=== PATIENT | female | born 1945 | race Caucasian/White ===

== ENCOUNTER 2022-08-11 13:55 | Observation (INO) ==
[2022-08-11 14:59] LABS: Hematocrit (blood only) 26.8 % (34.1-44.9); Hemoglobin 8.4 g/dl (12.0-16.0); Mean Corpuscular Hemoglobin 30.1 pg (25.0-34.0); Mean Corpuscular Hgb Conc 31.3 g/dL (32.0-36.0); Mean Corpuscular Volume 96.1 fL (80.0-100.0); Mean Platelet Volume 9.6 fL (9.4-12.3); Platelet Count 279 K/uL (130-400); RDW Coefficient of Variation 16.9 % (11.5-14.5); RDW Standard Deviation 57.7 fL (36.4-46.3); Red Blood Count 2.79 M/uL (3.93-5.22); White Blood Count 5.98 K/ul (4.8-10.8)
--- NOTE | 2022-08-11 15:18 | Emergency Department Note ---
Impression & Plan GIB (gastrointestinal bleeding), COVID-19, Anticoagulant long-term use, History of atrial fibrillation, Acute blood loss anemia ED Provider Note NAME: FAY BATISTA AGE: 77 SEX: F : 1945 ARRIVES VIA: Walk-In INFORMANT: Patient, ED PROVIDER(S): Chucho Barboza MD Chief Complaint: GI bleeding HPI: Patient presents due to concern for possible GI bleeding. The patient reportedly has had some dark stools over the last several weeks but only brought to the attention of her sons within the last week. They did order Hemoccult cards but did not have the dye. They did notice that she was having dark stools . No bright red blood per rectum. Patient is on Eliquis for known history of TAVR and A. fib. Patient denies any current dizziness or lightheadedness and no syncope. The patient has no abdominal pain. Patient has had no nausea or vomiting. She denies any chest pains or shortness of breath. Patient does not currently use any alcohol or tobacco. No NSAIDs. ROS: See HPI for pertinent positives and negatives. A total of 10 systems were reviewed and otherwise negative. Past medical history: See below Surgical history: See below Social history: See below Physical Exam: GENERAL: NAD, wearing a mask, non-toxic. EYE EXAM: Normal conjunctiva. PERRL, no anisocoria and EOM's grossly intact w/o pain. NECK: Supple, no nuchal rigidity, no adenopathy, non-tender. No signs of meningismus. FROM of the neck with good chin to chest and neck extension. No stridor. LUNGS: Clear to auscultation. Normal chest wall mechanics. HEART: NSR, no MRG. ABDOMEN: Abdomen soft, non-tender, normo-active bowel sounds, no masses, no rebound or guarding. BACK: No CVA TTP. SKIN: No rashes and no bruising. UPPER EXTREMITIES: Upper extremities are grossly normal. LOWER EXTREMITIES: Grossly normal, no edema. NEURO EXAM: A&O x3, cranial nerves II-XII grossly intact, normal speech, moves all 4 extremities. Differential diagnoses: Diverticulosis, AVM, coagulopathy, colitis, inflammatory bowel disease, malignancy, Senia-Lobo tear, esophagitis, peptic ulcer disease, variceal bleed, gastritis, epistaxis, fissure, hemorrhoids, as well as other pathologies. Course: Patient was seen and evaluated the bedside. Full history physical exam was performed. Cardiac monitoring: An order was placed for continuous cardiac monitoring. The monitor shows a rate of 69 with sinus rhythm. MDM: Patient was seen due to concern for GI bleeding. The patient did have blood work completed and did have some done yesterday in the outpatient setting. Patient was given some IV fluids. Hemoccult positive. The patient does have a drop in her hemoglobin to 8.4 and had been as high as 13 last May. Patient's white count is normal with normal platelet count. The patient's kidney function is unremarkable. Patient is COVID-positive. I did speak briefly with Dr. Lugo and after discussion does not think the patient requires Kcentra at this time. PPI bolus and drip ordered. The patient not complain of any infectious symptoms. I did speak the on-call hospitalist Dr. Hendrickson and the patient was admitted to the medicine service. Past Med/Surg History Medical History Anemia Carotid artery stenosis L ICA>70% 03/2020 Congestion of nasal sinus Cough GI bleeding Hyperlipidemia Hypertension Paroxysmal A-fib Anticoagulation, Amiodarone Surgical History History of appendectomy History of heart valve replacement TAVR 01/08/2019 History of hip replacement Family History Mother Breast cancer Hypertension Father Hypertension Myocardial infarction Denies family history of Colon cancer Ovarian cancer Prostate cancer Social History Smoking Status: Former smoker Tobacco Type: Cigarettes Age Started Using Tobacco: 16; Age Quit Using Tobacco: 73; packs per day: 1; Second Hand Exposure: No; Hx Alcohol Use: No Hx Substance Use: No Preferred Language: Dutch Communication Ability: Effective Visual Impairment: No Limitations Hearing Ability: Normal marital status: Current Living Situation: Family Current Living Situation Comment: lives with sons Ines current occupational status: retired 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 Feels Safe at Home: Yes Childhood Exposure to Second-Hand Smoke: No Diet Comment: no specific diet Dental Care, Regularly: No Physical Activity Frequency: Does not Exercise Seatbelt Use: always Sunscreen Use: No Do you think of yourself as: straight/heterosexual Allergies Allergies Allergy/AdvReac Type Severity Reaction Status Date / Time No Known Allergies Allergy Verified 08/11/22 16:18 Home Meds Home Medications Medication Instructions Recorded Confirmed ferrous sulfate 325 mg (65 mg 325 mg PO BID 05/27/20 08/11/22 iron) tablet vit C 250 mg-vit E 90 mg-zinc 40 1 tab PO BID 07/25/21 08/11/22 mg-copper 1 [id number]-[id number] capsule (PreserVision AREDS-2) calcium carbonate 500 mg calcium 500 mg PO BID 08/11/22 08/11/22 (1,250 mg) tablet carvedilol 6.25 mg tablet 6.25 mg PO BID 08/11/22 08/11/22 rosuvastatin 10 mg tablet 10 mg PO DAILY 08/11/22 08/11/22 Previous Rx's Medication Instructions Recorded multivitamin 1 tab PO DAILY #30 tabs 04/17/19 Walker w/ seat #1 ea 01/21/21 potassium chloride 10 mEq 10 meq PO DAILY 90 days #90 tabs 08/30/21 tablet,extended release apixaban 5 mg tablet 5 mg PO BID #180 tabs 10/18/21 furosemide 20 mg tablet 20 mg PO DAILY #90 tabs 12/19/21 lisinopril 20 mg tablet 20 mg PO DAILY #90 tabs 12/19/21 pantoprazole 40 mg tablet,delayed 40 mg PO BID #180 tabs 02/13/22 release levothyroxine 50 mcg tablet 50 mcg PO DAILY #90 tabs 07/26/22 Results & Data (ED) Vital Signs Vital Signs - 24 hr 08/11/22 14:09 08/11/22 15:55 08/11/22 15:55 Temperature 36.5 C Temperature Source Temporal Artery Scan Pulse Rate 82 Pulse Rate [Apical] 60 Pulse Rhythm [Apical] Regular Pulse Strength [Apical] Normal Respiratory Rate 18 18 Respiratory Effort / Characteristics Non-Labored Respiratory Depth Normal Normal Respiratory Pattern Regular Blood Pressure 105/52 L Blood Pressure [Right Arm] 117/47 L Blood Pressure Mean 69 Blood Pressure Mean [Right Arm] 70 Blood Pressure Position Sitting Blood Pressure Position [Right Arm] Lying Pulse Oximetry 96 Oxygen Delivery Method Room Air Room Air Sepsis Recent Fever Within 48 Hours No Sepsis New/Unexplained Change in Mental Status No Sepsis Action Taken by Nursing No Action Required 08/11/22 17:00 08/11/22 18:59 Temperature Temperature Source Pulse Rate Pulse Rate [Apical] 59 L 66 Pulse Rhythm [Apical] Regular Pulse Strength [Apical] Normal Respiratory Rate 18 18 Respiratory Effort / Characteristics Non-Labored Non-Labored Spontaneous Respiratory Depth Normal Normal Respiratory Pattern Regular Regular Blood Pressure Blood Pressure [Right Arm] 119/62 131/59 L Blood Pressure Mean Blood Pressure Mean [Right Arm] 81 83 Blood Pressure Position Blood Pressure Position [Right Arm] Lying Sitting Pulse Oximetry 97 96 Oxygen Delivery Method Room Air Room Air Sepsis Recent Fever Within 48 Hours Sepsis New/Unexplained Change in Mental Status Sepsis Action Taken by Half-Way Medications Current Medication List: was personally reviewed by me Laboratory Data Attestation: I reviewed the patient's lab results. Result diagrams: 08/11/22 14:45 08/11/22 14:45 Lab Results 08/11/22 08/11/22 08/11/22 Range/Units 14:45 14:45 14:45 WBC 5.98 (4.8-10.8) K/ul RBC 2.79 L (3.93-5.22) M/uL Hgb 8.4 L (12.0-16.0) g/dl Hct 26.8 L (34.1-44.9) % MCV 96.1 (80.0-100.0) fL MCH 30.1 (25.0-34.0) pg MCHC 31.3 L (32.0-36.0) g/dL RDW Std Deviation 57.7 H (36.4-46.3) fL RDW Coeff of Tracy 16.9 H (11.5-14.5) % Plt Count 279 (130-400) K/uL MPV 9.6 (9.4-12.3) fL PT 12.6 H (9.0-12.0) Seconds INR 1.2 H (0.9-1.1) APTT 26.6 (21.0-31.0) Seconds PTT Ratio 1.0 Sodium 140 (136-145) mmol/L Potassium 4.1 (3.5-5.1) mmol/L Chloride 104 (98-107) mmol/L Carbon Dioxide 31 (21-32) mmol/L Anion Gap 5 (3-11) BUN 18 (6-23) mg/dl Creatinine 1.02 (0.6-1.2) mg/dl Est Cr Clr Drug Dosing Not Reportable Est GFR ( Amer) 60.6 ml/min Est GFR (Non-Af Amer) 52.3 ml/min BUN/Creatinine Ratio 17.6 (10-20) Glucose 102 H (70-99(Fasting)) mg/dl Calcium 8.8 (8.5-10.1) mg/dl Total Bilirubin 0.4 (0.2-1.0) mg/dl AST 19 (13-39) U/L ALT 12 (7-52) U/L Alkaline Phosphatase 58 (34-104) U/L Total Protein 5.9 L (6.0-8.3) gm/dl Albumin 3.5 (3.4-5.0) gm/dl Globulin 2.4 L (2.5-4.0) gm/dl Albumin/Globulin Ratio 1.5 (0.9-2) POC Stool Occult Blood (Negative) SARS-CoV-2, RNA, NAAT (NEGATIVE) Blood Type Antibody Screen 08/11/22 08/11/22 08/11/22 Range/Units 15:55 15:59 17:33 WBC (4.8-10.8) K/ul RBC (3.93-5.22) M/uL Hgb (12.0-16.0) g/dl Hct (34.1-44.9) % MCV (80.0-100.0) fL MCH (25.0-34.0) pg MCHC (32.0-36.0) g/dL RDW Std Deviation (36.4-46.3) fL RDW Coeff of Tracy (11.5-14.5) % Plt Count (130-400) K/uL MPV (9.4-12.3) fL PT (9.0-12.0) Seconds INR (0.9-1.1) APTT (21.0-31.0) Seconds PTT Ratio Sodium (136-145) mmol/L Potassium (3.5-5.1) mmol/L Chloride (98-107) mmol/L Carbon Dioxide (21-32) mmol/L Anion Gap (3-11) BUN (6-23) mg/dl Creatinine (0.6-1.2) mg/dl Est Cr Clr Drug Dosing Est GFR ( Amer) ml/min Est GFR (Non-Af Amer) ml/min BUN/Creatinine Ratio (10-20) Glucose (70-99(Fasting)) mg/dl Calcium (8.5-10.1) mg/dl Total Bilirubin (0.2-1.0) mg/dl AST (13-39) U/L ALT (7-52) U/L Alkaline Phosphatase (34-104) U/L Total Protein (6.0-8.3) gm/dl Albumin (3.4-5.0) gm/dl Globulin (2.5-4.0) gm/dl Albumin/Globulin Ratio (0.9-2) POC Stool Occult Blood Positive A (Negative) SARS-CoV-2, RNA, NAAT POSITIVE A* (NEGATIVE) Blood Type O Positive Antibody Screen NEGATIVE Administered Medications Pantoprazole Sodium 40 mg/ (Dextrose) 100 mls @ 20 mls/hr IV Q5H VENECIA Stop: 09/10/22 15:44 Last Admin: 08/11/22 16:32 Dose: 8 mg/hr, 20 mls/hr Documented By: DOMINGA Discontinued Medications Pantoprazole Sodium (Protonix Bolus/Drip) 0 mls @ 1 mls/hr IV ONE STA Stop: 08/11/22 15:27 Last Admin: 08/11/22 16:16 Dose: Not Given Documented By: DOMINGA Pantoprazole Sodium 80 mg/ (Dextrose) 120 mls @ 400 mls/hr IV NOW ONE Stop: 08/11/22 15:43 Last Infusion: 08/11/22 16:31 Dose: 0 mls/hr Documented By: Admin: 08/11/22 16:15 Dose: 400 mls/hr Documented By: DOMINGA Sodium Chloride (Nss 1000ml) 500 mls @ 999 mls/hr IV .Q31M ONE Stop: 08/11/22 16:03 Last Infusion: 08/11/22 16:20 Dose: 0 mls/hr Documented By: Admin: 08/11/22 15:54 Dose: 999 mls/hr Documented By: DOMINGA Discharge Plan Visit Data Chief Complaint: GI Bleed Stated Complaint: GI BLEEDING ED Provider: Chucho Barboza Discharge Problem: GIB (gastrointestinal bleeding), COVID-19, Anticoagulant long-term use, History of atrial fibrillation, Acute blood loss anemia Forms Stand Alone Forms: My [facility] Prescriptions Prescriptions: No Action potassium chloride 10 mEq tablet extended release 10 meq PO DAILY 90 Days Qty: 90 3RF apixaban 5 mg tablet 5 mg PO BID Qty: 180 3RF furosemide 20 mg tablet 20 mg PO DAILY Qty: 90 3RF lisinopril 20 mg tablet 20 mg PO DAILY Qty: 90 3RF pantoprazole 40 mg tablet,delayed release (DR/EC) 40 mg PO BID Qty: 180 3RF multivitamin tablet 1 tab PO DAILY Qty: 30 0RF levothyroxine 50 mcg tablet 50 mcg PO DAILY Qty: 90 1RF ferrous sulfate 325 mg (65 mg iron) tablet 325 mg PO BID (DME) Walker w/ seat See Rx Instructions .Route .MEDSUPPLY Qty: 1 0RF Rx Instructions: As directed PreserVision AREDS-2 250-90-40-1 mg capsule 1 tab PO BID calcium carbonate [Calcium 500] 500 mg calcium (1,250 mg) Tablet 500 mg PO BID carvedilol 6.25 mg tablet 6.25 mg PO BID Rx Instructions: TAKE 1 TABLET BY MOUTH TWICE A DAY rosuvastatin 10 mg tablet 10 mg PO DAILY Rx Instructions: TAKE 1 TABLET BY MOUTH EVERY DAY Referrals Referrals: Jesu Tripathi DO [Primary Care Provider] -
[2022-08-11 15:26] LABS: INR 1.2 (0.9-1.1); Partial Thromboplastin Time 26.6 Seconds (21.0-31.0); Prothrombin Time 12.6 Seconds (9.0-12.0)
[2022-08-11] MEDS ORDERED: PANTOPRAZOLE BOLUS/DRIP 1 EACH IV STA (15:26)
[2022-08-11] MEDS ORDERED: PANTOprazole 80 MG in DEXTROSE 5% 100 ML IV ONE (15:26)
[2022-08-11] MEDS ORDERED: SODIUM CHLORIDE 0.9% 1000ML 500 ML IV ONE (15:33)
[2022-08-11 15:34] LABS: Alanine Aminotransferase 12 U/L (7-52); Albumin Globulin Ratio 1.5 (0.9-2); Albumin Level 3.5 gm/dl (3.4-5.0); Alkaline Phosphatase 58 U/L (34-104); Anion Gap 5 (3-11); Aspartate Aminotransferase 19 U/L (13-39); BUN Creatinine Ratio 17.6 (10-20); Bilirubin,Total 0.4 mg/dl (0.2-1.0); Blood Urea Nitrogen 18 mg/dl (6-23); Calcium 8.8 mg/dl (8.5-10.1); Carbon Dioxide 31 mmol/L (21-32); Chloride 104 mmol/L (98-107); Est GFR (African American) 60.6 ml/min; Est GFR (Non-African American) 52.3 ml/min; Globulin 2.4 gm/dl (2.5-4.0); Glucose 102 mg/dl (70-99(Fasting)); Potassium 4.1 mmol/L (3.5-5.1); Sodium 140 mmol/L (136-145); Total Protein 5.9 gm/dl (6.0-8.3)
--- NOTE | 2022-08-11 15:53 | History & Physical Report ---
Date of Service August 11, 2022 Assessment & Plan (1) UGIB (upper gastrointestinal bleed): Plan: 77-year-old female with a history of Eliquis use and no NSAID/aspirin/alcohol use and with 3 prior ulcers cauterized in [place] 2019 who presents with weakness, pallor, and melena with acute anemia suspect 2/2 upper GI bleed. GI bleed Dark stools/melena for several weeks Epigastric tenderness to palpation on exam. Patient with a history of 3X gastric ulcers that were cauterized in [place] in 2019. Does not use aspirin/NSAIDs or alcohol Outpatient hemoglobin 8.7, on ER check 8.4 - Was discussed wtih Dr. Lugo by ER, no Kcentra recommended. Hold Eliquis PPI drip started, continue GI consulted N.p.o. -H&H every 6 hours Type and cross on file No evidence of acute myocardial ischemia, transfusion threshold 7.0 Blood consent signed Diastolic CHF Echo 06/2021: LVEF 60-65%, grade 1 diastolic dysfunction, well-seated bioprosthetic valve - Antiplatelets due to GI bleeds, DOAC as noted Hold lisinopril due to relative hypotension Statin as noted Hold Lasix with relative hypotension Carvedilol held for admitting hypotension, resume to prevent beta-rubin withdrawal if blood pressure tolerable Gentle maintenance fluids while n.p.o., discontinue if Paroxysmal A. fib DOAC held as noted Carvedilol as noted Carotid stenosis Left ICA 70% 2020 No acute stroke pathology, antiplatelet/anticoagulation management as above COPD - Only on albuterol PRN at home, rarely - Denies hx of wheezing Hypertension Hold lisinopril/carvedilol in setting of bleed/hypotension and Hyperlipidemia continue rosuvastatin Aortic valve stenosis s/p bioprosthetic TAVR 01/08/2019 DOAC held as above PAD S/p right iliofemoral endarterectomy/repair 12/2018 with chronic right SFA occlusion Not on antiplatelets due to GI bleeds, DOAC held as noted DVT prophylaxis: SCDs, pharmacal prophylaxis held in the setting of bleed Diet: N.p.o., IVF Disposition: Medical telemetry for GI bleed CODE STATUS: Pillo Olivier [phone] surrogate DM son. Full Code. (2) Atrial fibrillation: (3) Anemia: (4) COPD (chronic obstructive pulmonary disease): (5) Pulmonary edema: (6) GERD (gastroesophageal reflux disease): (7) Hyperlipidemia: (8) Hypothyroidism: History of Present Illness Primary Care Provider: Jesu TripathiDO Fagan is a 77-year-old female with a past medical history of A. fib on apixaban, AVR, COPD, GERD, hyperlipidemia, CAD, hypothyroidism who presents to the emergency department for evaluation for GI bleed. Was seen 08/10/2022 with a hemoglobin of 8.7 from prior 13.5. On reevaluation in ER 08/11/2022 hemoglobin has had an interval decrease to 8.4. MCV 96. Sodium, potassium are normal Creatinine is with normal baseline, on admission creatinine is 1.02. BUN is not elevated, 18 on admission. No transaminitis Seen with son at bedside Had a home stool test from PCP Pale, week in the last 7 days Was supposed to have an appt today at 3pm but PCP recommended to come to the ER based on bloodwork 08/10 Stool 'dark like charcoal' for 10 days. No bright red blood. NO vomiting. NO abdominal pain. NO lightheadedness or dizziness. No syncope/presyncope. + generalized weakness yesterday, denies at time of bedside NO history of PA History of AVR in [place] Denies swelling/edema Denies NSAID/aspirin use. EGDCOlonscopy: [facility] in [place] 2019, was found to have a 3x gastric ulcer at the time which required cauterization. Medical History: Reviewed Medications: Reviewed. Eliquis (last dose this AM ~9-10am), carvedilol, lisinopril. Synthroid 50, PPI BID took this morning Surgical History: Reviewed Allergies: Reviewed. NKDA. Social History: No tobacco use. No alcohol use. Code Status:Full Allergies Allergy/AdvReac Type Severity Reaction Status Date / Time No Known Allergies Allergy Verified 08/11/22 16:18 Home Medications Medication Instructions Recorded Confirmed Type multivitamin 1 tab PO DAILY #30 tabs 04/17/19 08/04/22 Rx ferrous sulfate 325 mg (65 mg 325 mg PO BID 05/27/20 08/04/22 History iron) tablet Walker w/ seat #1 ea 01/21/21 08/04/22 Rx calcium carbonate 500 mg calcium 500 mg PO BID 07/25/21 08/04/22 History (1,250 mg) tablet (Calcium 500) vit C 250 mg-vit E 90 mg-zinc 40 1 tab PO BID 07/25/21 08/04/22 History mg-copper 1 [id number] capsule (PreserVision AREDS-2) potassium chloride 10 mEq 10 meq PO DAILY 90 days #90 tabs 08/30/21 08/04/22 Rx tablet,extended release apixaban 5 mg tablet 5 mg PO BID #180 tabs 10/18/21 08/04/22 Rx furosemide 20 mg tablet 20 mg PO DAILY #90 tabs 12/19/21 08/04/22 Rx lisinopril 20 mg tablet 20 mg PO DAILY #90 tabs 12/19/21 08/04/22 Rx pantoprazole 40 mg tablet,delayed 40 mg PO BID #180 tabs 02/13/22 08/04/22 Rx release rosuvastatin 10 mg tablet See Rx Instructions .Route 04/10/22 08/04/22 Rx .COMPLEX #90 tabs carvedilol 6.25 mg tablet See Rx Instructions .Route 06/12/22 08/04/22 Rx .COMPLEX #180 tabs levothyroxine 50 mcg tablet 50 mcg PO DAILY #90 tabs 07/26/22 08/04/22 Rx calcium carbonate 500 mg calcium 500 mg PO BID 08/11/22 08/11/22 History (1,250 mg) tablet Past Med/Surg History Medical History Anemia Carotid artery stenosis L ICA>70% 03/2020 Congestion of nasal sinus Cough GI bleeding Hyperlipidemia Hypertension Paroxysmal A-fib Anticoagulation, Amiodarone Surgical History History of appendectomy History of heart valve replacement TAVR 01/08/2019 History of hip replacement Family History Mother Breast cancer Hypertension Father Hypertension Myocardial infarction Denies family history of Colon cancer Ovarian cancer Prostate cancer Social History Smoking Status: Former smoker Tobacco Type: Cigarettes Age Started Using Tobacco: 16; Age Quit Using Tobacco: 73; packs per day: 1; Second Hand Exposure: No; Hx Alcohol Use: No Hx Substance Use: No Preferred Language: Finnish Communication Ability: Effective Visual Impairment: No Limitations Hearing Ability: Normal marital status: Current Living Situation: Family Current Living Situation Comment: lives with sons Ines current occupational status: retired 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 NAD. Cooperative. Somewhat poor historian, history collected with assistance of son at bedside. Mild pallor HEENT: Atraumatic, normocephalic. EoM intact. hearing intact. Pulm: CTAB A&P. -wheezes, -rales, -rhonchi. Symmetrical chest rise. No increased work of breathing. No respiratory distress. Cardiac: RRR, sm. Radial pulses intact and symmetrical. Abdominal: +epigastric tenderness without rebound nondistended, soft. BS present. Ext: warm, dry. No edema. Results & Data Results & Data ([facility]) Vital Signs (Past 12 Hours) Vital Signs Temp Pulse Resp BP 08/11/22 14:09 36.5 C 82 18 105/52 L PG Care Time/CCT Total # of Minutes Spent Total Time Spent with Patient: Total time spent is greater than 50% in coordination of care (as documented) at patient's floor/unit and/or counseling patient: Coding Level of Care Code 14330 Initial Inpt Care Lvl 3 Diagnoses UGIB (upper gastrointestinal bleed) K92.2 Atrial fibrillation I48.91 Anemia D64.9 COPD (chronic obstructive pulmonary disease) J44.9 Pulmonary edema J81.1 GERD (gastroesophageal reflux disease) K21.9 Hyperlipidemia E78.5 Hypothyroidism E03.9
[2022-08-11] MEDS: PANTOprazole 40 MG in DEXTROSE 5% 100 ML IV SCH ×2 (16:32→23:30)
[2022-08-11] MEDS ORDERED: POLYETHYLENE (MIRALAX) 17 GM PACK PO PRN (21:47)
[2022-08-11 22:24] LABS: Hemoglobin 8.3 g/dl (12.0-16.0)
[2022-08-11] MEDS: SODIUM CHLORIDE 0.9% 1000ML 1,000 ML IV SCH (23:59)
[2022-08-12] MEDS: PANTOprazole 40 MG in DEXTROSE 5% 100 ML IV SCH ×5 (02:14→22:44)
[2022-08-12 05:00] LABS: Basophils # (auto) 0.04 K/uL (0-0.2); Basophils % (auto) 0.8 %; Eosinophils % (auto) 3.9 %; Hemoglobin 7.5 g/dl (12.0-16.0); Immature Granulocytes # (auto) 0.01 K/uL (0.00-0.02); Immature Granulocytes % (auto) 0.2 %; Lymphocytes # (auto) 1.34 K/uL (1.2-3.4); Lymphocytes % (auto) 25.8 %; Mean Corpuscular Hemoglobin 29.8 pg (25.0-34.0); Mean Corpuscular Hgb Conc 31.3 g/dL (32.0-36.0); Mean Corpuscular Volume 95.2 fL (80.0-100.0); Mean Platelet Volume 9.8 fL (9.4-12.3); Monocytes # (auto) 0.52 K/uL (0.24-0.82); Neutrophils # (auto) 3.08 K/uL (1.4-6.5); Neutrophils % (auto) 59.3 %; Platelet Count 231 K/uL (130-400); RDW Coefficient of Variation 16.9 % (11.5-14.5); RDW Standard Deviation 58.1 fL (36.4-46.3); Red Blood Count 2.52 M/uL (3.93-5.22); White Blood Count 5.19 K/ul (4.8-10.8)
[2022-08-12 05:19] LABS: BUN Creatinine Ratio 16.5 (10-20); Calcium 7.9 mg/dl (8.5-10.1); Creatinine Clr Calc Pharmacy 45.1 ml/min; Est GFR (African American) 69.5 ml/min; Potassium 3.3 mmol/L (3.5-5.1)
[2022-08-12 05:20] LABS: Anisocytosis Present; Polychromasia 1+
--- NOTE | 2022-08-12 08:53 | XRay Report ---
XR chest 1V portable HISTORY: Shortness of breath. COVID-19 COMPARISON: Chest 02/03/2022. FINDINGS: The cardiac silhouette remains mildly enlarged. An aortic valve prosthesis and mitral valve calcifications again noted. There are old, healed left-sided rib fractures. The upper lung zones are clear. Emphysema again noted. Hazy appearance to the lung bases may represent a low-grade pneumoniti s. IMPRESSION: Hazy appearance to lung bases which may represent a low-grade pneumonitis. ACT 112: Negative or not required by law. Electronically signed by: Bear Oliver M.D. 08/12/2022 8:52 AM
[2022-08-12] MEDS: SODIUM CHLORIDE 0.9% 1000ML 1,000 ML IV SCH (08:58)
[2022-08-12] MEDS: POTASSIUM CHLORIDE / WTR 10 MEQ/100 ML PLCT IV SCH ×2 (09:04→10:07)
[2022-08-12 10:04] LABS: Hematocrit (blood only) 23.8 % (34.1-44.9); Hemoglobin 7.4 g/dl (12.0-16.0)
--- NOTE | 2022-08-12 11:22 | Communication Note ---
Date of Service: August 12, 2022 GI note this is a77 yo female with hx afib on apixaban, COPD, GERD, previous PUD in 2019 requiring endoscopic intervention here with melena and symptomatic anemia. Hgb noted to be 7.4 today, normal BUN. She has been feeling weak and pale, notes dark stools for 10 days. Was found to have covid here upon admission. Recs: --protonix drip or 40 mg IV BID --clear liquid diet today, advance as tolerated tomorrow if stable --will need outpatient EGD once covid has cleared --supportive care, IVFs, trend H/H Nirav Mueller MD Gastroenterology
[2022-08-12 17:12] LABS: Hematocrit (blood only) 29.2 % (34.1-44.9); Hemoglobin 8.9 g/dl (12.0-16.0)
--- NOTE | 2022-08-12 18:39 | Hospitalist Progress Note ---
Date of Service August 12, 2022 Assessment & Plan (1) UGIB (upper gastrointestinal bleed): Plan: 77-year-old female with a history of Eliquis use and no NSAID/aspirin/alcohol use and with 3 prior ulcers cauterized in [place] 2018 who presents with weakness, pallor, and melena with acute anemia suspect 2/2 upper GI bleed. GI bleed Dark stools/melena for several weeks Epigastric tenderness to palpation on exam. Patient with a history of 3X gastric ulcers that were cauterized in [place] in 2019. Does not use aspirin/NSAIDs or alcohol. Pain-free today. Hgb 8.4 -> 7.4 suspect dilutional with IV fluids. Back up to 8.9 now. Continue to hold Eliquis pending EGD PPI drip started, continue GI consulted -discussed with Dr. Mueller and no plans on EGD as an inpatient due to COVID-19 diagnosis Advance diet to clear liquid Repeat CBC in a.m. as appears to be stable Agree with transfusion threshold less than 7 g/dL Diastolic CHF Paroxysmal A. fib DOAC held as noted Restart carvedilol Carotid stenosis Left ICA 70% 2020 No acute stroke pathology, antiplatelet/anticoagulation management as above COPD - Only on albuterol PRN at home, rarely - Denies hx of wheezing Hypertension Restart carvedilol, continue to hold lisinopril Hyperlipidemia continue rosuvastatin Aortic valve stenosis s/p bioprosthetic TAVR 01/08/2019 DOAC held as above PAD S/p right iliofemoral endarterectomy/repair 12/2018 with chronic right SFA occlusion Not on antiplatelets due to GI bleeds, DOAC held as noted (2) Atrial fibrillation: (3) Anemia: (4) COPD (chronic obstructive pulmonary disease): (5) Pulmonary edema: (6) GERD (gastroesophageal reflux disease): (7) Hyperlipidemia: (8) Hypothyroidism: Plan DVT prophylaxis: SCDs, chemical prophylaxis held in the setting of bleed Diet: Clear liquids Disposition: Medical telemetry for GI bleed CODE STATUS: Pillo Olivier [phone] surrogate DM son. Full Code. Admission and Anticipated Discharge Date Admission Date: August 11, 2022 Subjective Patient requesting to get out of hospital. She feels fine and wondering when she can go home. She does admit to some memory issues and is not clear on any of her medications and does not quite understand why she is here. She cannot tell me about her melena previously or even today. She denies any pain. Updated her son, Pillo, on speaker phone. He reports the patient last took Eliquis yesterday morning around 10-11 AM. No NSAIDs. She has been taking pantoprazole 40 mg p.o. twice daily since 2019. Review of Systems Review of Systems: Unobtainable due to cognitive status Physical Exam Constitutional: WD/WN, vitals as above Respiratory: normal respiratory effort, lungs clear to auscultation Cardiovascular: RRR, no murmur, no edema Gastrointestinal (Abdomen): normal bowel sounds, soft, nontender, no hepatosplenomegaly Musculoskeletal: no cyanosis or clubbing, extremities motor strength 5/5 Skin: no rashes, warm and dry Neurologic: moves all extremities and awake; not confused Results & Data Results & Data ([facility]) Vital Signs (Past 12 Hours) Vital Signs Temp Pulse Pulse Resp BP Pulse Ox O2 Del Method 08/12/22 17:17 36.6 C 63 20 146/74 H 94 Room Air 08/12/22 14:17 71 08/12/22 12:37 36.6 C 82 20 163/67 H 95 Room Air 08/12/22 07:48 36.5 C 70 20 130/57 L 91 Room Air 08/12/22 07:00 68 08/12/22 07:48 Room Air PG Care Time/CCT Total # of Minutes Spent Total Time Spent with Patient: Total time spent is greater than 50% in coordination of care (as documented) at patient's floor/unit and/or counseling patient: Coding Level of Care Code 90352 Subseq Hosp Care Lvl 2 Diagnoses UGIB (upper gastrointestinal bleed) K92.2 Atrial fibrillation I48.91 Anemia D64.9 COPD (chronic obstructive pulmonary disease) J44.9 Pulmonary edema J81.1 GERD (gastroesophageal reflux disease) K21.9 Hyperlipidemia E78.5 Hypothyroidism E03.9
[2022-08-12] MEDS: carvediloL 6.25 MG TAB PO SCH (20:35)
[2022-08-13] MEDS: PANTOprazole 40 MG in DEXTROSE 5% 100 ML IV SCH ×5 (03:52→21:23)
[2022-08-13] MEDS: LEVOTHYROXINE SODIUM 50 MCG TABLET PO SCH (05:53)
[2022-08-13 06:18] LABS: Basophils # (auto) 0.04 K/uL (0-0.2); Basophils % (auto) 0.8 %; Eosinophils % (auto) 6.3 %; Hematocrit (blood only) 23.8 % (34.1-44.9); Hemoglobin 7.4 g/dl (12.0-16.0); Immature Granulocytes # (auto) 0.01 K/uL (0.00-0.02); Immature Granulocytes % (auto) 0.2 %; Lymphocytes # (auto) 1.01 K/uL (1.2-3.4); Lymphocytes % (auto) 21.1 %; Mean Corpuscular Hemoglobin 29.4 pg (25.0-34.0); Mean Corpuscular Hgb Conc 31.1 g/dL (32.0-36.0); Mean Corpuscular Volume 94.4 fL (80.0-100.0); Mean Platelet Volume 9.8 fL (9.4-12.3); Monocytes # (auto) 0.56 K/uL (0.24-0.82); Monocytes % (auto) 11.7 %; Neutrophils # (auto) 2.86 K/uL (1.4-6.5); Neutrophils % (auto) 59.9 %; Platelet Count 228 K/uL (130-400); RDW Coefficient of Variation 16.7 % (11.5-14.5); RDW Standard Deviation 58.4 fL (36.4-46.3); Red Blood Count 2.52 M/uL (3.93-5.22); White Blood Count 4.78 K/ul (4.8-10.8)
[2022-08-13 06:54] LABS: BUN Creatinine Ratio 12.3 (10-20); Calcium 7.7 mg/dl (8.5-10.1); Creatinine Clr Calc Pharmacy 56.2 ml/min; Est GFR (African American) 90.8 ml/min; Est GFR (Non-African American) 78.3 ml/min; Potassium 3.4 mmol/L (3.5-5.1)
[2022-08-13 06:59] LABS: Polychromasia 1+
[2022-08-13] MEDS: carvediloL 6.25 MG TAB PO SCH ×2 (08:50→20:23)
[2022-08-13] MEDS: FUROSEMIDE 20 MG TAB PO SCH (08:50)
[2022-08-13] MEDS: ROSUVASTATIN CALCIUM 10 MG TAB PO SCH (08:51)
[2022-08-13] MEDS ORDERED: POTASSIUM CHLORIDE CRTAB 20 MEQ TABCR PO STA (09:55)
[2022-08-13] MEDS: FAMOTIDINE 20 MG in SYRINGE 3 ML IV SCH ×2 (10:34→20:22)
--- NOTE | 2022-08-13 11:12 | Electrocardiogram Report ---
Test Reason : Blood Pressure : / mmHG Vent. Rate : 068 BPM Atrial Rate : 068 BPM P-R Int : 198 ms QRS Dur : 094 ms QT Int : 418 ms P-R-T Axes : 000 -43 095 degrees QTc Int : 444 ms Poor data quality, interpretation may be adversely affected Normal sinus rhythm Left anterior fascicular block Possible Septal infarct , age undetermined Abnormal ECG No previous ECGs available Confirmed by Angel Chaudhry ([id number]) on 08/13/2022 11:12:17 AM Referred By: REFERRED SELF Confirmed By:Angel Chaudhry
[2022-08-13] MEDS ORDERED: SUCRALFATE 1 GM/10 ML UDC PO SCH (11:30)
[2022-08-13] MEDS: SUCRALFATE 1 GM/10 ML UDC PO SCH ×3 (11:45→20:23)
--- NOTE | 2022-08-13 12:20 | Hospitalist Progress Note ---
Date of Service August 13, 2022 Assessment & Plan (1) UGIB (upper gastrointestinal bleed): Plan: 77-year-old female with a history of Eliquis use and no NSAID/aspirin/alcohol use and with 3 prior ulcers cauterized in [place] 2018 who presents with weakness, pallor, and melena with acute anemia suspect 2/2 upper GI bleed. GI bleed Dark stools/melena for several weeks Epigastric tenderness to palpation on exam. Patient with a history of 3X gastric ulcers that were cauterized in [place] in 2019. Does not use aspirin/NSAIDs or alcohol. Pain-free today. Hgb 8.4 -> 7.4 suspect dilutional with IV fluids. Back down to 7.4 this morning Continue to hold Eliquis pending EGD PPI drip started, continue for [address] Mueller as patient previously was taking pantoprazole therefore bled despite this. Recommended adding on famotidine and Carafate. Repeat CBC in a.m. as appears to be stable Agree with transfusion threshold less than 7 g/dL Ferritin and transferrin sats with AM labs Paroxysmal A. fib DOAC held as noted Restart carvedilol Carotid stenosis Left ICA 70% 2020 No acute stroke pathology, antiplatelet/anticoagulation management as above COPD - Only on albuterol PRN at home, rarely - Denies hx of wheezing Hypertension Continue carvedilol, restart lisinopril Hyperlipidemia continue rosuvastatin Aortic valve stenosis s/p bioprosthetic TAVR 01/08/2019 DOAC held as above PAD S/p right iliofemoral endarterectomy/repair 12/2018 with chronic right SFA occlusion Not on antiplatelets due to GI bleeds, DOAC held as noted (2) Atrial fibrillation: (3) Anemia: (4) COPD (chronic obstructive pulmonary disease): (5) Pulmonary edema: (6) GERD (gastroesophageal reflux disease): (7) Hyperlipidemia: (8) Hypothyroidism: Plan DVT prophylaxis: SCDs, chemical prophylaxis held in the setting of bleed Diet: Clear liquids Disposition: Medical telemetry for GI bleed CODE STATUS: Pillo Olivier [phone] surrogate DM son. Full Code. Admission and Anticipated Discharge Date Admission Date: August 11, 2022 Subjective No acute concerns or questions from patient. Updated her son over the phone and discussed iron transfusion therefore will get her iron saturation levels tomorrow to see if she would benefit from intravenous iron. Review of Systems Review of Systems: All systems reviewed & are unremarkable except as noted in Subjective Physical Exam Constitutional: WD/WN, vitals as above Respiratory: normal respiratory effort, lungs clear to auscultation Cardiovascular: RRR, no murmur, no edema Gastrointestinal (Abdomen): normal bowel sounds, soft, nontender, no hepatosplenomegaly Musculoskeletal: no cyanosis or clubbing, extremities motor strength 5/5 Skin: no rashes, warm and dry Neurologic: moves all extremities and awake; not confused Results & Data Results & Data ([facility]) Vital Signs (Past 12 Hours) Vital Signs Temp Pulse Pulse Pulse Resp BP Pulse Ox 08/13/22 11:50 36.5 C 66 18 138/88 95 08/13/22 08:30 36.5 C 73 18 149/73 H 90 08/13/22 07:00 64 08/13/22 03:25 36.7 C 74 18 142/65 H 91 08/13/22 01:38 70 O2 Del Method 08/13/22 11:50 Room Air 08/13/22 08:30 Room Air 08/13/22 07:00 08/13/22 03:25 Room Air 08/13/22 01:38 PG Care Time/CCT Total # of Minutes Spent Total Time Spent with Patient: Total time spent is greater than 50% in coordination of care (as documented) at patient's floor/unit and/or counseling patient: Coding Level of Care Code 22601 Subseq Hosp Care Lvl 2 Diagnoses UGIB (upper gastrointestinal bleed) K92.2 Atrial fibrillation I48.91 Anemia D64.9 COPD (chronic obstructive pulmonary disease) J44.9 Pulmonary edema J81.1 GERD (gastroesophageal reflux disease) K21.9 Hyperlipidemia E78.5 Hypothyroidism E03.9
[2022-08-14] MEDS: PANTOprazole 40 MG in DEXTROSE 5% 100 ML IV SCH ×3 (02:30→14:31)
[2022-08-14] MEDS: LEVOTHYROXINE SODIUM 50 MCG TABLET PO SCH (05:58)
[2022-08-14 07:57] LABS: Basophils # (auto) 0.03 K/uL (0-0.2); Basophils % (auto) 0.6 %; Eosinophils # (auto) 0.29 K/uL (0-0.50); Eosinophils % (auto) 6.2 %; Hematocrit (blood only) 25.2 % (34.1-44.9); Hemoglobin 7.6 g/dl (12.0-16.0); Immature Granulocytes # (auto) 0.02 K/uL (0.00-0.02); Immature Granulocytes % (auto) 0.4 %; Lymphocytes # (auto) 0.81 K/uL (1.2-3.4); Lymphocytes % (auto) 17.4 %; Mean Corpuscular Hemoglobin 28.7 pg (25.0-34.0); Mean Corpuscular Hgb Conc 30.2 g/dL (32.0-36.0); Mean Corpuscular Volume 95.1 fL (80.0-100.0); Mean Platelet Volume 9.9 fL (9.4-12.3); Monocytes # (auto) 0.59 K/uL (0.24-0.82); Monocytes % (auto) 12.7 %; Neutrophils # (auto) 2.92 K/uL (1.4-6.5); Neutrophils % (auto) 62.7 %; Platelet Count 227 K/uL (130-400); RDW Coefficient of Variation 16.5 % (11.5-14.5); Red Blood Count 2.65 M/uL (3.93-5.22); White Blood Count 4.66 K/ul (4.8-10.8)
[2022-08-14] MEDS: SUCRALFATE 1 GM/10 ML UDC PO SCH ×3 (08:20→17:16)
[2022-08-14 08:22] LABS: Polychromasia 1+
[2022-08-14] MEDS: FUROSEMIDE 20 MG TAB PO SCH (08:22)
[2022-08-14] MEDS: ROSUVASTATIN CALCIUM 10 MG TAB PO SCH (08:23)
[2022-08-14] MEDS: carvediloL 6.25 MG TAB PO SCH (08:23)
[2022-08-14 08:24] LABS: BUN Creatinine Ratio 8.9 (10-20); Calcium 7.9 mg/dl (8.5-10.1); Est GFR (African American) 82.5 ml/min; Est GFR (Non-African American) 71.2 ml/min; Potassium 3.2 mmol/L (3.5-5.1)
[2022-08-14] MEDS ORDERED: POTASSIUM CHLORIDE CRTAB 20 MEQ TABCR PO STA (08:34)
[2022-08-14 08:44] LABS: Ferritin 12.3 ng/ml (8-388)
[2022-08-14] MEDS ORDERED: lisinopril 20 MG TAB PO SCH (09:00)
[2022-08-14] MEDS: FAMOTIDINE 20 MG in SYRINGE 3 ML IV SCH (09:28)
[2022-08-14] MEDS ORDERED: IRON SUCROSE 300 MG in SODIUM CHLORIDE 0.9% 250 ML IV ONE (12:30)
--- NOTE | 2022-08-14 16:56 | Discharge Summary ---
Date of Service August 14, 2022 Admission HPI Per Admitting Provider Gracia is a 77-year-old female with a past medical history of A. fib on apixaban, AVR, COPD, GERD, hyperlipidemia, CAD, hypothyroidism who presents to the emergency department for evaluation for GI bleed. Was seen 08/10/2022 with a hemoglobin of 8.7 from prior 13.5. On reevaluation in ER 08/11/2022 hemoglobin has had an interval decrease to 8.4. MCV 96. Sodium, potassium are normal Creatinine is with normal baseline, on admission creatinine is 1.02. BUN is not elevated, 18 on admission. No transaminitis Seen with son at bedside Had a home stool test from PCP Vicky, week in the last 7 days Was supposed to have an appt today at 3pm but PCP recommended to come to the ER based on bloodwork 08/10 Stool 'dark like charcoal' for 10 days. No bright red blood. NO vomiting. NO abdominal pain. NO lightheadedness or dizziness. No syncope/presyncope. + generalized weakness yesterday, denies at time of bedside NO history of PR History of AVR in [place] Denies swelling/edema Denies NSAID/aspirin use. EGDCOlonscopy: [facility] in [place] 2018, was found to have a 3x gastric ulcer at the time which required cauterization. Medical History: Reviewed Medications: Reviewed. Eliquis (last dose this AM ~9-10am), carvedilol, lisinopril. Synthroid 50, PPI BID took this morning Surgical History: Reviewed Allergies: Reviewed. NKDA. Social History: No tobacco use. No alcohol use. Code Status:Full Principal Diagnosis Upper gastrointestinal bleed SARS-COV-2 positive Discharge Exam Constitutional WD/WN, vitals as above Respiratory normal respiratory effort, lungs clear to auscultation Cardiovascular RRR, no murmur, no edema Gastrointestinal (Abdomen) normal bowel sounds, soft, nontender, no hepatosplenomegaly Musculoskeletal no cyanosis or clubbing, extremities motor strength 5/5 Skin no rashes, warm and dry Neurologic moves all extremities and awake; not confused Discharge Data Allergies Allergy/AdvReac Type Severity Reaction Status Date / Time No Known Allergies Allergy Verified 08/11/22 16:18 Consultations 08/11/22 15:58 ED Decision to Admit Stat 08/11/22 21:47 Consult Gastroenterology Routine Hospital Course (1) UGIB (upper gastrointestinal bleed): Gracia Olivier is a 77 year old female with dementia and history of gastric ulcers admitted to [facility] from August 11 to 2021 due to melena. She was diagnosed with an upper gastrointestinal bleed. She also tested positive for SARS-COV-2 therefore EGD was deferred until she is off isolation and hemoglobin has remained stable off Eliquis. Hemoglobin 7.6g/dL on discharge. Transferrin saturations 3%. She was given 300mg intravenous iron sucrose (Venofer) during her admission. Total deficit of iron is approximately 650mg therefore recommended following up with her primary care provider to discuss additional iron transfusion to be arranged as outpatient. She was started on famotidine and Carafate in addition to her usual pantoprazole to help with any gastric ulcers. She was advised to hold her Eliquis to reduce risk of bleeding until she has an endoscopy. She will follow up with gastroenterology for outpatient endoscopy. (2) Atrial fibrillation: (3) Anemia: (4) COPD (chronic obstructive pulmonary disease): (5) Pulmonary edema: (6) GERD (gastroesophageal reflux disease): (7) Hyperlipidemia: (8) Hypothyroidism: Total Time Total Time Spent Total Time Spent (In Minutes): 40 Discharge Plan Discharge Items Patient Disposition: Home - Self-Care Reason For Visit: UGIB Discharge Diagnosis: Upper gastrointestinal bleed SARS-COV-2 positive Activity: Resume your previous activity Non-emergency contact: Primary Care Provider Call non-emergency contact if: you have any medication questions and your symptoms worsen Follow-up/Referrals: Jesu Tripathi DO [Primary Care Provider] - 08/21/22 9:20 am Nirav Mueller MD [Physician] - (follow up EGD) Diet: Regular Addtl Attending Provider Instructions: You were admitted to [facility] from August 11 to 2021 due to melena. You were diagnosed with an upper gastrointestinal bleed however due to having COVID testing positive recommend endoscopy is performed as an outpatient. Hemoglobin stayed stable and was 7.6g/dL on discharge. Transferrin saturations 3%. You had 300mg intravenous iron sucrose during your admission. Total deficit of iron is approximately 650mg therefore recommend following up with your primary care provider to discuss another iron transfusion. You were started on famotidine and Carafate in addition to your usual pantoprazole to help with any gastric ulcers. Please continue to hold your apixaban (Eliquis) to reduce risk of bleeding. Please follow up with gastroenterology for outpatient endoscopy. Pending Studies at Discharge: No Stand-Alone Forms: My [facility], Smoking Cessation Medications and DC Order Prescriptions: New famotidine 20 mg tablet 20 mg PO BID Qty: 60 0RF sucralfate [Carafate] 1 gram tablet 1 g PO ACHS Qty: 28 0RF Continued potassium chloride 10 mEq tablet extended release 10 meq PO DAILY 90 Days Qty: 90 3RF furosemide 20 mg tablet 20 mg PO DAILY Qty: 90 3RF lisinopril 20 mg tablet 20 mg PO DAILY Qty: 90 3RF pantoprazole 40 mg tablet,delayed release (DR/EC) 40 mg PO BID Qty: 180 3RF multivitamin tablet 1 tab PO DAILY Qty: 30 0RF levothyroxine 50 mcg tablet 50 mcg PO DAILY Qty: 90 1RF ferrous sulfate 325 mg (65 mg iron) tablet 325 mg PO BID (DME) Walker w/ seat See Rx Instructions .Route .MEDSUPPLY Qty: 1 0RF Rx Instructions: As directed PreserVision AREDS-2 250-90-40-1 mg capsule 1 tab PO BID calcium carbonate 500 mg calcium (1,250 mg) Tablet 500 mg PO BID carvedilol 6.25 mg tablet 6.25 mg PO BID Rx Instructions: TAKE 1 TABLET BY MOUTH TWICE A DAY rosuvastatin 10 mg tablet 10 mg PO DAILY Rx Instructions: TAKE 1 TABLET BY MOUTH EVERY DAY Discontinued apixaban 5 mg tablet 5 mg PO BID Qty: 180 3RF Discharge Orders: Discharge Order (Routine); Ordered 08/14/22 Ordered By: Dinesh Quan Admission Data Admit Date/Time: 08/11/22 16:20 Attending Provider: Dinesh Quan Admit Provider: Mor Hendrickson Primary Care Provider: Jesu Tripathi Other Providers: Mor Hendrickson ; Daniel Mack Other Interventions: Discharge Summary Assessment (RN) Last Done: 08/14/22 17:05 Coding Level of Care Code D/C DAY MANAGEMENT >30 MINS Diagnoses UGIB (upper gastrointestinal bleed) K92.2 Atrial fibrillation I48.91 Anemia D64.9 COPD (chronic obstructive pulmonary disease) J44.9 Pulmonary edema J81.1 GERD (gastroesophageal reflux disease) K21.9 Hyperlipidemia E78.5 Hypothyroidism E03.9
[2022-08-14] MEDS ORDERED: PANTOprazole 40 MG TAB PO SCH (21:00)
== END 2022-08-14 18:09 | disposition home or self-care (01) ==
LOC: ED 13:55 → INTOOBSV 16:20 → SUATTDRO 16:20 → 2N 16:20
DX: I50.30 Unspecified diastolic (congestive) heart failure; Z79.890 Hormone replacement therapy; Z87.891 Personal history of nicotine dependence; I35.0 Nonrheumatic aortic (valve) stenosis; K92.2 Gastrointestinal hemorrhage, unspecified; E03.9 Hypothyroidism, unspecified; D64.9 Anemia, unspecified; Z95.2 Presence of prosthetic heart valve; E78.5 Hyperlipidemia, unspecified; Z79.899 Other long term (current) drug therapy; U07.1 COVID-19; J44.9 Chronic obstructive pulmonary disease, unspecified; I73.9 Peripheral vascular disease, unspecified; J81.1 Chronic pulmonary edema; I48.0 Paroxysmal atrial fibrillation; K21.9 Gastro-esophageal reflux disease without esophagitis

== ENCOUNTER 2023-07-14 23:47 | Observation (INO) ==
--- NOTE | 2023-07-15 00:25 | Emergency Department Note ---
Impression & Plan Surgical wound hemorrhage after dental procedure, Elevated troponin Admit to the [facility] ED Provider Note NAME: FAY BATISTA AGE: 78 SEX: Female INFORMANT: Patient ED PROVIDER(S): Rosie Urbina DO CHIEF COMPLAINT: Dental bleeding; wet cough PLAN: Disposition: Admit to the [facility] MEDICAL DECISION MAKING: This is an 78-year-old female patient who underwent oral surgery to the right side of her mouth on 07/05. She restarted her Eliquis on 07/07 and has had intermittent bleeding since that time. She was reevaluated 2 days ago by the oral surgeon but had no bleeding at that time. The family is concerned because the patient had more significant bleeding tonight and has developed a wet cough. The patient may be aspirating blood. She is hemodynamically stable. Her hemog lobin is 11.2 which is actually good for her. She has no leukocytosis. Sodium and chloride are slightly low. Glucose is slightly high. Troponin is elevated at 22 and BNP is 204. The dental bleeding had stopped upon arrival here in the emergency department. I discussed the case with the [facility]ist and they will evaluate for further inpatient care. Patient's blood pressure began to drop while here in the ER. She was bolused with IV normal saline solution. Care/management discussed with: [facility] Triage Nursing notes: Reviewed and agree them. Vital Signs: reviewed and remarkable for hypotension Additional History obtained from: The patient's son is at the bedside Chronic Medical/Social Conditions affecting care: Patient has a history of atrial fibrillation for which she takes Eliquis. Prior /Outside records reviewed: None Differential Diagnosis: Postsurgical bleeding from dental procedure; CHF; pneumonia; anemia Diagnostics, independently interpreted by me: ECG: Normal sinus rhythm at [address] segment elevation or signs of ischemia. There is no ectopy. Cardiac Monitoring: Normal sinus rhythm at 65 Imaging studies: Portable chest x-ray: No pulmonary infiltrates or consolidation HPI: 78 year old Female arrives for evaluation of dental bleeding. This is an 78-year-old female patient who underwent oral surgery to the right side of her mouth on 07/05. She restarted her Eliquis on 07/07 and has had intermittent bleeding since that time. She was reevaluated 2 days ago by the oral surgeon but had no bleeding at that time. The family is concerned because the patient had more significant bleeding tonight and has developed a wet cough.. PAST MEDICAL HISTORY: See Below, PAST SURGICAL HISTORY: Dental surgery on 07/05 SOCIAL HISTORY: See Below, HOME MEDICATIONS: See list ALLERGIES: None VITALS: See Below PHYSICAL EXAMINATION: HEENT: Head - normocephalic and atraumatic. Pupils are equal, round, and reactive to light. Extraocular eye muscles are intact, and sclera are anicteric. Nose - moist nasal mucosa without discharge. Mouth - moist buccal mucosa. On the right upper and lower alveolar ridge, there is obvious area of dental surgery but no current bleeding. Neck: Supple; no cervical lymphadenopathy noted Heart: Regular rate and rhythm. There is a normal S1 and S2 with no murmurs, clicks, or gallops appreciated. Lungs: Clear to auscultation bilaterally with no wheezes, rales, or rhonchi. Abdomen: Soft, completely nontender, nondistended, with good bowel sounds. There are no palpable pulsatile masses or hepatosplenomegaly. There is no guarding, rigidity, or rebound noted. Extremities: No evidence of cyanosis, clubbing, or edema. There are easily palpable peripheral pulses. Skin: Extremely pale, warm and dry with good turgor and no rashes. ED course: The patient was evaluated in room B5. A complete history and physical was performed. Laboratory studies were drawn as above. Portable chest x-ray was performed. I discussed the case with the [facility] Hospitalist and they will evaluate for further inpatient care. Past Med/Surg History Medical History Anticoagulant long-term use following with [place] cardiology Carotid artery stenosis L ICA>70% 05/23/22 carotid doppler, following with [place] cardio with plan to repeat carotid doppler and follow-up in 1 year per 05/23/22 note Chronic diastolic CHF (congestive heart failure) EF 60-65%, Grade I diastolic dysfunction on 06/2021 echo Chronic obstructive pulmonary disease GERD (gastroesophageal reflux disease) listed in history History of blood transfusion 08/2022 History of COVID-19 08/11/22 @ [facility]--mild symptoms (cough, fatigue), no symtoms now History of GI bleed History of skin cancer Hyperlipidemia Hypertension Hypothyroidism Iron deficiency anemia Macular degeneration INJECTIONS RT EYE Osteoarthritis Paroxysmal A-fib follows with [place] cardiology, Dr. Laboy Peripheral arterial disease following with [place] cardiology; "...status post right ileofemoral endarterectomy/repair 12/2018; known RT SFA occlusion..." Short-term memory loss Surgical History History of appendectomy History of cataract surgery RT/LEFT History of colonoscopy History of endometrial ablation History of esophagogastroduodenoscopy (EGD) History of heart valve replacement TAVR 01/08/2019, [facility], [place], [place] History of hip replacement RT History of tooth extraction Family History Mother Breast cancer Hypertension Father Myocardial infarction Hypertension Other No family history of adverse response to anesthesia Denies family history of Colon cancer Ovarian cancer Prostate cancer Social History Smoking Status: Former smoker Tobacco Type: Cigarettes Age Started Using Tobacco: 16; Age Quit Using Tobacco: 73; packs per day: 1; Second Hand Exposure: No; Do You Dip or Chew Tobacco: No; Hx Alcohol Use: No Hx Substance Use: No Preferred Language: Croatian Communication Ability: Effective Visual Impairment: No Limitations Hearing Ability: Normal Battery Test Engineer Required: No Beliefs That Will Affect Care: None marital status: Current Living Situation: Family Current Living Situation Comment: WITH SON current occupational status: retired 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 Feels Safe at Home: Yes Childhood Exposure to Second-Hand Smoke: No Diet: regular Diet Comment: no specific diet Dental Care, Regularly: No Physical Activity Frequency: Does not Exercise Seatbelt Use: always Sunscreen Use: No Do you think of yourself as: straight/heterosexual Assistive Devices: Glasses and Walker Allergies Allergies Allergy/AdvReac Type Severity Reaction Status Date / Time No Known Allergies Allergy Verified 05/24/23 13:33 Home Meds Home Medications Medication Instructions Recorded Confirmed ferrous sulfate 325 mg (65 mg 325 mg PO BID 05/27/20 05/24/23 iron) tablet vit C 250 mg-vit E 90 mg-zinc 40 1 tab PO BID 07/25/21 05/24/23 mg-copper 1 [id number] capsule (PreserVision AREDS-2) multivitamin 1 tab PO HS 11/01/22 05/24/23 potassium chloride 10 mEq 10 meq PO QAM 11/01/22 05/24/23 tablet,extended release calcium carbonate 500 mg-vitamin 1 tab PO QAM 04/12/23 05/24/23 D3 10 mcg (400 unit) tablet (Calcium 500 + D) Previous Rx's Medication Instructions Recorded albuterol sulfate 90 mcg/actuation 1 puff inhalation QID PRN 09/20/22 aerosol inhaler shortness of breath or wheezing #18 grams furosemide 20 mg tablet 20 mg PO QAM #30 tabs 12/06/22 lisinopril 20 mg tablet 20 mg PO QAM #30 tabs 12/06/22 pantoprazole 40 mg tablet,delayed 40 mg PO BID #180 tabs 02/05/23 release famotidine 20 mg tablet See Rx Instructions .Route 02/28/23 .COMPLEX #180 tabs levothyroxine 50 mcg tablet 50 mcg PO QAM #90 tabs 03/14/23 rosuvastatin 10 mg tablet 10 mg PO HS #90 tabs 05/23/23 carvedilol 6.25 mg tablet See Rx Instructions .Route 06/01/23 .COMPLEX #180 tabs apixaban 5 mg tablet (Eliquis) 5 mg PO BID #90 tabs 06/11/23 Results & Data (ED) Vital Signs Vital Signs - 24 hr 07/14/23 23:52 07/15/23 00:36 07/15/23 00:55 Temperature 36.8 C Temperature Source Temporal Artery Scan Pulse Rate 85 71 67 Pulse Rate [Apical] Pulse Rhythm Regular Regular Pulse Rhythm [Apical] Pulse Strength Normal Pulse Strength [Apical] Respiratory Rate 18 18 Respiratory Effort / Characteristics Non-Labored Spontaneous Respiratory Depth Normal Respiratory Pattern Regular Blood Pressure 91/53 L Blood Pressure [Right Arm] Blood Pressure Mean 65 Blood Pressure Mean [Right Arm] Blood Pressure Position Sitting Blood Pressure Position [Right Arm] Pulse Oximetry 91 90 Oxygen Delivery Method Room Air Room Air Sepsis Recent Fever Within 48 Hours No Sepsis New/Unexplained Change in Mental Status N/A Sepsis Action Taken by Nursing No Action Required 07/15/23 01:00 07/15/23 03:30 07/15/23 04:30 Temperature Temperature Source Pulse Rate 65 Pulse Rate [Apical] 64 67 Pulse Rhythm Pulse Rhythm [Apical] Regular Regular Pulse Strength Pulse Strength [Apical] Normal Normal Respiratory Rate 16 18 Respiratory Effort / Characteristics Non-Labored Spontaneous Non-Labored Spontaneous Respiratory Depth Normal Normal Respiratory Pattern Regular Regular Blood Pressure Blood Pressure [Right Arm] 88/44 L 100/47 L Blood Pressure Mean Blood Pressure Mean [Right Arm] 58 64 Blood Pressure Position Blood Pressure Position [Right Arm] Semi-fowlers Semi-fowlers Pulse Oximetry 93 91 Oxygen Delivery Method Room Air Room Air Sepsis Recent Fever Within 48 Hours Sepsis New/Unexplained Change in Mental Status Sepsis Action Taken by Nursing Laboratory Data 07/15/23 00:35 07/15/23 00:35 Lab Results 07/15/23 07/15/23 07/15/23 Range/Units 00:35 00:35 00:35 WBC 7.16 (4.8-10.8) K/ul RBC 3.67 L (4.20-5.40) M/uL Hgb 11.2 L (12.0-16.0) g/dl Hct 34.3 L (37.0-47.0) % MCV 93.5 (80.0-100.0) fL MCH 30.5 (25.0-34.0) pg MCHC 32.7 (32.0-36.0) g/dL RDW Std Deviation 50.2 H (36.4-46.3) fL RDW Coeff of Tracy 14.7 H (11.5-14.5) % Plt Count 212 (130-400) K/uL MPV 9.9 (9.4-12.4) fL Immature Gran % (Auto) 0.3 % Neut % (Auto) 68.7 % Lymph % (Auto) 12.6 % Payette % (Auto) 17.9 % Eos % (Auto) 0.1 % Baso % (Auto) 0.4 % Neut # (Auto) 4.92 (1.40-6.50) K/uL Lymph # (Auto) 0.90 L (1.20-3.40) K/uL Payette # (Auto) 1.28 H (0.11-0.59) K/uL Eos # (Auto) 0.01 (0.00-0.50) K/uL Baso # (Auto) 0.03 (0.00-0.20) K/uL Immature Gran # (Auto) 0.02 (0.01-0.20) K/uL Sodium 131 L (136-145) mmol/L Potassium 3.7 (3.5-5.1) mmol/L Chloride 94 L (98-107) mmol/L Carbon Dioxide 30 (21-32) mmol/L Anion Gap 7 (3-11) BUN 23 (6-23) mg/dl Creatinine 1.06 (0.6-1.2) mg/dl Est Cr Clr Drug Dosing 38.1 ml/min Est GFR ( Amer) 57.4 ml/min Est GFR (Non-Af Amer) 49.6 ml/min BUN/Creatinine Ratio 21.7 H (10-20) Glucose 131 H (70-99(Fasting)) mg/dl Calcium 8.7 (8.6-10.3) mg/dl Total Bilirubin 0.6 (0.2-1.0) mg/dl AST 27 (13-39) U/L ALT 14 (7-52) U/L Alkaline Phosphatase 67 (34-104) U/L Troponin I High Sens 22.4 H (0-14) pg/ml B-Natriuretic Peptide 204 H (0-100) pg/ml Total Protein 6.1 (6.0-8.3) gm/dl Albumin 3.5 (3.4-5.0) gm/dl Globulin 2.6 (2.5-4.0) gm/dl Albumin/Globulin Ratio 1.3 (0.9-2) Administered Medications Discontinued Medications Piperacillin Sod/Tazobactam Sod (Zosyn) 4.5 gm in 100 mls @ 200 mls/hr IV NOW STA Stop: 07/15/23 04:13 Last Admin: 07/15/23 04:25 Dose: 200 mls/hr Documented By: TRESA Discharge Plan Visit Data Chief Complaint: Dental/Oral Stated Complaint: MOUTH IS BLEEDING FOR ORAL SURGERY 9 DAYS AGO ED Provider: Rosie Urbina Discharge Problem: Surgical wound hemorrhage after dental procedure, Elevated troponin Forms Stand Alone Forms: My [facility] Synovex Prescriptions Prescriptions: No Action albuterol sulfate 90 mcg/actuation HFA aerosol inhaler 1 puff inhalation QID PRN (Reason: shortness of breath or wheezing) Qty: 18 0RF furosemide 20 mg tablet 20 mg PO QAM Qty: 30 11RF lisinopril 20 mg tablet 20 mg PO QAM Qty: 30 11RF pantoprazole 40 mg tablet,delayed release (DR/EC) 40 mg PO BID Qty: 180 3RF famotidine 20 mg tablet See Rx Instructions .ROUTE .COMPLEX Qty: 180 1RF Dose Instruction: TAKE 1 TABLET BY MOUTH TWICE A DAY Rx Instructions: TAKE 1 TABLET BY MOUTH TWICE A DAY levothyroxine 50 mcg tablet 50 mcg PO QAM Qty: 90 1RF rosuvastatin 10 mg tablet 10 mg PO HS Qty: 90 3RF Rx Instructions: TAKE 1 TABLET BY MOUTH EVERY DAY carvedilol 6.25 mg tablet See Rx Instructions .ROUTE .COMPLEX Qty: 180 1RF Dose Instruction: TAKE 1 TABLET BY MOUTH TWICE A DAY Rx Instructions: TAKE 1 TABLET BY MOUTH TWICE A DAY Eliquis 5 mg tablet 5 mg PO BID Qty: 90 3RF ferrous sulfate 325 mg (65 mg iron) tablet 325 mg PO BID PreserVision AREDS-2 250-90-40-1 mg capsule 1 tab PO BID multivitamin tablet 1 tab PO HS potassium chloride 10 mEq tablet extended release 10 meq PO QAM calcium carbonate-vitamin D3 [Calcium 500 + D] 500 mg-10 mcg (400 unit) Tablet 1 tab PO QAM Referrals Referrals: Jesu Tripathi, [Primary Care Provider] -
[2023-07-15 01:19] LABS: Basophils # (auto) 0.03 K/uL (0.00-0.20); Basophils % (auto) 0.4 %; Eosinophils # (auto) 0.01 K/uL (0.00-0.50); Eosinophils % (auto) 0.1 %; Hematocrit (blood only) 34.3 % (37.0-47.0); Hemoglobin 11.2 g/dl (12.0-16.0); Immature Granulocytes # (auto) 0.02 K/uL (0.01-0.20); Immature Granulocytes % (auto) 0.3 %; Lymphocytes % (auto) 12.6 %; Mean Corpuscular Hemoglobin 30.5 pg (25.0-34.0); Mean Corpuscular Hgb Conc 32.7 g/dL (32.0-36.0); Mean Corpuscular Volume 93.5 fL (80.0-100.0); Mean Platelet Volume 9.9 fL (9.4-12.4); Monocytes # (auto) 1.28 K/uL (0.11-0.59); Monocytes % (auto) 17.9 %; Neutrophils # (auto) 4.92 K/uL (1.40-6.50); Neutrophils % (auto) 68.7 %; Platelet Count 212 K/uL (130-400); RDW Coefficient of Variation 14.7 % (11.5-14.5); RDW Standard Deviation 50.2 fL (36.4-46.3); Red Blood Count 3.67 M/uL (4.20-5.40); White Blood Count 7.16 K/ul (4.8-10.8)
[2023-07-15 01:25] LABS: Albumin Globulin Ratio 1.3 (0.9-2); Albumin Level 3.5 gm/dl (3.4-5.0); BUN Creatinine Ratio 21.7 (10-20); Bilirubin,Total 0.6 mg/dl (0.2-1.0); Calcium 8.7 mg/dl (8.6-10.3); Creatinine Clr Calc Pharmacy 38.1 ml/min; Est GFR (African American) 57.4 ml/min; Est GFR (Non-African American) 49.6 ml/min; Globulin 2.6 gm/dl (2.5-4.0); Potassium 3.7 mmol/L (3.5-5.1); Total Protein 6.1 gm/dl (6.0-8.3)
[2023-07-15 01:32] LABS: Troponin I High Sensitivity 22.4 pg/ml (0-14)
[2023-07-15] MEDS ORDERED: ONDANSETRON INJ 2 MG/ML 2 ML VIAL IV PRN ×2 (03:10→06:29)
--- NOTE | 2023-07-15 03:22 | History & Physical Report ---
Date of Service July 15, 2023 Assessment & Plan (1) Bleeding gums: (2) GERD (gastroesophageal reflux disease): (3) Atrial fibrillation: (4) Status post transcatheter aortic valve replacement (TAVR) using bioprosthesis: (5) Elevated troponin: (6) Hypotension: (7) COPD (chronic obstructive pulmonary disease): (8) Aspiration pneumonia of both lungs: (9) Anticoagulant long-term use: Plan Bleeding gums status post oral surgery- Hold Eliquis Hemoglobin of 11.2 is actually good for her We will need to consult her oral surgeon Aspiration pneumonia- Bilateral upper lobes, question aspirating blood from her gums Zosyn 4.5 g IV every 8 hours Duonebs every 4 hours while awake and every 2 hours when necessary. Guaifenesin syrup 200 mg p.o. 4 times daily Zofran 4 mg IV every 6 hours as needed Acetaminophen 650 mg by mouth every 6 hours as needed for mild pain or fever Hypotension- Patient had oral surgery that involved an infection, and now has aspiration pneumonia as well Give a 1 L bolus normal saline Placed on IV fluids, NSS + KCl 20 mEq at 100 mils per hour and IV antibiotics May require more fluid bolusing Admit to monitored bed Hold all antihypertensives History of Present Illness Chief Complaint: The patient presents to the emergency department with worsening shortness of breath, and gurgling sounds noted by family when she is breathing, and increased spitting up blood from a bleeding oral lesion that occurred after resuming Eliquis on 07/07 after having oral surgery on 07/05. Primary Care Provider: Jesu Tripathi DO The patient is an 78-year-old female with a past medical history including GERD, atrial fibrillation, status post TAVR, hypertension, COPD, hyperlipidemia, carotid artery disease, upper GI bleed, hypothyroidism and long-term anticoagulant use. Patient had surgery on 07/05 for an oral lesion, that the son reports was infected and was on an antibiotic for 5 days. She resumed her E liquis on 07/07. When seen by her oral surgeon for follow-up 2 days ago, she did not have any bleeding at that time. She began to have bleeding issues shortly after that visit, spitting up blood from her mouth, which her son reports is due to her using her tongue to play with the sutures. She denies any significant chest pain or shortness of breath, however, she has not been very physically active during this interval. Allergies Allergy/AdvReac Type Severity Reaction Status Date / Time No Known Allergies Allergy Verified 05/24/23 13:33 Home Medications Medication Instructions Recorded Confirmed Type ferrous sulfate 325 mg (65 mg 325 mg PO BID 05/27/20 05/24/23 History iron) tablet vit C 250 mg-vit E 90 mg-zinc 40 1 tab PO BID 07/25/21 05/24/23 History mg-copper 1 [id number] capsule (PreserVision AREDS-2) albuterol sulfate 90 mcg/actuation 1 puff inhalation QID PRN 09/20/22 05/24/23 Rx aerosol inhaler shortness of breath or wheezing #18 grams multivitamin 1 tab PO HS 11/01/22 05/24/23 History potassium chloride 10 mEq 10 meq PO QAM 11/01/22 05/24/23 History tablet,extended release furosemide 20 mg tablet 20 mg PO QAM #30 tabs 12/06/22 05/24/23 Rx lisinopril 20 mg tablet 20 mg PO QAM #30 tabs 12/06/22 05/24/23 Rx pantoprazole 40 mg tablet,delayed 40 mg PO BID #180 tabs 02/05/23 05/24/23 Rx release famotidine 20 mg tablet See Rx Instructions .Route 02/28/23 05/24/23 Rx .COMPLEX #180 tabs levothyroxine 50 mcg tablet 50 mcg PO QAM #90 tabs 03/14/23 05/24/23 Rx calcium carbonate 500 mg-vitamin 1 tab PO QAM 04/12/23 05/24/23 History D3 10 mcg (400 unit) tablet (Calcium 500 + D) rosuvastatin 10 mg tablet 10 mg PO HS #90 tabs 05/23/23 05/24/23 Rx carvedilol 6.25 mg tablet See Rx Instructions .Route 06/01/23 Rx .COMPLEX #180 tabs apixaban 5 mg tablet (Eliquis) 5 mg PO BID #90 tabs 06/11/23 Rx Past Med/Surg History Medical History Anticoagulant long-term use following with [place] [facility]ology Carotid artery stenosis L ICA>70% 05/23/22 carotid doppler, following with [facility] cardio with plan to repeat carotid doppler and follow-up in 1 year per 05/23/22 note Chronic diastolic CHF (congestive heart failure) EF 60-65%, Grade I diastolic dysfunction on 06/2021 echo Chronic obstructive pulmonary disease GERD (gastroesophageal reflux disease) listed in history History of blood transfusion 08/2022 History of COVID-19 08/11/22 @ [facility]--mild symptoms (cough, fatigue), no symtoms now History of GI bleed History of skin cancer Hyperlipidemia Hypertension Hypothyroidism Iron deficiency anemia Macular degeneration INJECTIONS RT EYE Osteoarthritis Paroxysmal A-fib follows with [place] [facility], Dr. Laboy Peripheral arterial disease following with [facility]; "...status post right ileofemoral endarterectomy/repair 12/2018; known RT SFA occlusion..." Short-term memory loss Surgical History History of appendectomy History of cataract surgery RT/LEFT History of colonoscopy History of endometrial ablation History of esophagogastroduodenoscopy (EGD) History of heart valve replacement TAVR 01/08/2019, [facility], [place], [place] History of hip replacement RT History of tooth extraction Family History Mother Breast cancer Hypertension Father Myocardial infarction Hypertension Other No family history of adverse response to anesthesia Denies family history of Colon cancer Ovarian cancer Prostate cancer Social History Smoking Status: Former smoker Tobacco Type: Cigarettes Age Started Using Tobacco: 16; Age Quit Using Tobacco: 73; packs per day: 1; Second Hand Exposure: No; Do You Dip or Chew Tobacco: No; Hx Alcohol Use: No Hx Substance Use: No Preferred Language: Welsh Communication Ability: Effective Visual Impairment: No Limitations Hearing Ability: Normal Educational Advisor Required: No Beliefs That Will Affect Care: None marital status: Current Living Situation: Family Current Living Situation Comment: WITH SON current occupational status: retired 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 Feels Safe at Home: Yes Childhood Exposure to Second-Hand Smoke: No Diet: regular Diet Comment: no specific diet Dental Care, Regularly: No Physical Activity Frequency: Does not Exercise Seatbelt Use: always Sunscreen Use: No Do you think of yourself as: straight/heterosexual Assistive Devices: Glasses and Walker Review of Systems Review of Systems: The patient denies chest pain, palpitations, shortness of breath, dyspnea on exertion, lower extremity swelling, sore throat, fevers, chills, sweats, vomiting, diarrhea , constipation, abdominal pain, pelvic pain, blood in urine or stool, dysuria, urinary frequency or urgency, lightheadedness, dizziness, headache, memory loss, loss of consciousness, rash, imbalance, focal or generalized weakness, numbness or tingling in arms or legs, generalized arthralgias or myalgias, back or neck pain, or night sweats. The review of systems is otherwise negative other than for that already noted above, and at least 10 systems have been reviewed. Physical Exam Physical Exam: The patient is awake, alert and oriented 3, well developed and well nourished, normocephalic and atraumatic, lying in bed and in no acute distress. HEENT--PERRL, EOMI, mucous membranes and oropharynx dry. Neck--supple. No JVD. No bruits. Thyroid normal, trachea midline, no adenopathy. Heart--normal S1 and S2. No murmurs, rubs or gallops. Lungs--coarse breath sounds bilateral upper lobes. No respiratory distress, no accessory muscle use. Abdomen--normal bowel sounds and soft. Nontender. Nondistended, no hernias or masses, no organomegaly. Extremities--no cyanosis or clubbing. No edema. There are good distal pulses b/l. Dermatologic--normal skin turgor, normal color, no abnormal lymph nodes, no rash. Neurologic--cranial nerves II through XII grossly intact. Rheumatologic--normal range of motion. Psychiatric--normal affect. Results & Data Results & Data Vital Signs (Past 12 Hours) Vital Signs Temp Pulse Pulse Resp BP BP Pulse Ox 07/15/23 01:00 64 16 88/44 L 93 07/15/23 00:55 67 18 90 07/15/23 00:36 71 07/14/23 23:52 36.8 C 85 18 91/53 L 91 O2 Del Method 07/15/23 01:00 Room Air 07/15/23 00:55 Room Air 07/15/23 00:36 07/14/23 23:52 Room Air Laboratory Results Laboratory Results WBC 7.16 K/ul (4.8-10.8) 07/15/23 00:35 RBC 3.67 M/uL (4.20-5.40) L 07/15/23 00:35 Hgb 11.2 g/dl (12.0-16.0) L 07/15/23 00:35 Hct 34.3 % (37.0-47.0) L 07/15/23 00:35 MCV 93.5 fL (80.0-100.0) 07/15/23 00:35 MCH 30.5 pg (25.0-34.0) 07/15/23 00:35 MCHC 32.7 g/dL (32.0-36.0) 07/15/23 00:35 RDW Std Deviation 50.2 fL (36.4-46.3) H 07/15/23 00:35 RDW Coeff of Tracy 14.7 % (11.5-14.5) H 07/15/23 00:35 Plt Count 212 K/uL (130-400) 07/15/23 00:35 MPV 9.9 fL (9.4-12.4) 07/15/23 00:35 Immature Gran % (Auto) 0.3 % 07/15/23 00:35 Neut % (Auto) 68.7 % 07/15/23 00:35 Lymph % (Auto) 12.6 % 07/15/23 00:35 Gallia % (Auto) 17.9 % 07/15/23 00:35 Eos % (Auto) 0.1 % 07/15/23 00:35 Baso % (Auto) 0.4 % 07/15/23 00:35 Neut # (Auto) 4.92 K/uL (1.40-6.50) 07/15/23 00:35 Lymph # (Auto) 0.90 K/uL (1.20-3.40) L 07/15/23 00:35 Gallia # (Auto) 1.28 K/uL (0.11-0.59) H 07/15/23 00:35 Eos # (Auto) 0.01 K/uL (0.00-0.50) 07/15/23 00:35 Baso # (Auto) 0.03 K/uL (0.00-0.20) 07/15/23 00:35 Immature Gran # (Auto) 0.02 K/uL (0.01-0.20) 07/15/23 00:35 Sodium 131 mmol/L (136-145) L 07/15/23 00:35 Potassium 3.7 mmol/L (3.5-5.1) 07/15/23 00:35 Chloride 94 mmol/L (98-107) L 07/15/23 00:35 Carbon Dioxide 30 mmol/L (21-32) 07/15/23 00:35 Anion Gap 7 (3-11) 07/15/23 00:35 BUN 23 mg/dl (6-23) 07/15/23 00:35 Creatinine 1.06 mg/dl (0.6-1.2) 07/15/23 00:35 Est Cr Clr Drug Dosing 38.1 ml/min 07/15/23 00:35 Est GFR ( Amer) 57.4 ml/min 07/15/23 00:35 Est GFR (Non-Af Amer) 49.6 ml/min 07/15/23 00:35 BUN/Creatinine Ratio 21.7 (10-20) H 07/15/23 00:35 Glucose 131 mg/dl (70-99(Fasting)) H 07/15/23 00:35 Calcium 8.7 mg/dl (8.6-10.3) 07/15/23 00:35 Total Bilirubin 0.6 mg/dl (0.2-1.0) 07/15/23 00:35 AST 27 U/L (13-39) 07/15/23 00:35 ALT 14 U/L (7-52) 07/15/23 00:35 Alkaline Phosphatase 67 U/L (34-104) 07/15/23 00:35 Troponin I High Sens 22.4 pg/ml (0-14) H 07/15/23 00:35 B-Natriuretic Peptide 204 pg/ml (0-100) H 07/15/23 00:35 Total Protein 6.1 gm/dl (6.0-8.3) 07/15/23 00:35 Albumin 3.5 gm/dl (3.4-5.0) 07/15/23 00:35 Globulin 2.6 gm/dl (2.5-4.0) 07/15/23 00:35 Albumin/Globulin Ratio 1.3 (0.9-2) 07/15/23 00:35 Code Status & VTE Plan Code Status Full code VTE Prophylaxis Plan VTE Prophylaxis will be ordered: Yes PG Care Time/CCT Total # of Minutes Spent Total Time Spent with Patient: Total time spent is greater than 50% in coordination of care (as documented) at patient's floor/unit and/or counseling patient: Coding Level of Care Code 39561 INT INP/OBS CARE 3/75MIN Diagnoses Bleeding gums K06.8 GERD (gastroesophageal reflux disease) K21.9 Atrial fibrillation I48.91 Status post transcatheter aortic valve replacement (TAVR) using bioprosthesis Z95.3 Elevated troponin R79.89 Hypotension I95.9 COPD (chronic obstructive pulmonary disease) J44.9 Aspiration pneumonia of both lungs J69.0 Anticoagulant long-term use Z79.01
[2023-07-15] MEDS ORDERED: PIPERACILLIN/TAZOBACTAM 4.5 GM/100 ML BAG IV STA (03:44)
[2023-07-15] MEDS ORDERED: SODIUM CHLORIDE 0.9% 1,000 ML IV SCH (05:09)
[2023-07-15] MEDS ORDERED: NSS+KCL 20 MEQ 1000ML IV ONE (05:22)
[2023-07-15] MEDS ORDERED: NSS + 20MEQ KCL 20 MEQ/1,000 ML BAG IV SCH (05:30)
[2023-07-15] MEDS ORDERED: ACETAMINOPHEN 325 MG TAB PO PRN ×2 (05:40→06:29)
[2023-07-15 07:00] LABS: Appearance Urine Clear (Clear); Bilirubin Urine Negative (Negative); Blood Urine Negative (Negative); Color Urine Yellow; Epithelial Cell Urine Auto >30 /lpf (0-5); Glucose Urine UA Negative (Negative); Ketones Urine Negative (Negative); Leukocyte Esterase Urine Trace (Negative); Nitrite Urine Negative (Negative); Protein Urine Negative (Negative); Urobilinogen Urine Negative (Negative)
[2023-07-15 07:21] LABS: Bacteria Urine Automated 1+ (Negative)
[2023-07-15] MEDS: ALBUT/IPRATROP 3MG/0.5MG NEB 3 ML VIAL NEB SCH ×4 (07:40→19:28)
[2023-07-15] MEDS: PIPERACILLIN/TAZOBACTAM 4.5 GM in DEXTROSE 5% MINI-B 100 ML IV SCH ×2 (09:32→17:33)
[2023-07-15] MEDS: guaiFENesin SUGAR FREE 200 MG/10 ML UDC PO SCH ×4 (09:32→19:55)
--- NOTE | 2023-07-15 09:41 | XRay Report ---
XR chest 1V portable CLINICAL HISTORY: Dyspnea TECHNIQUE: Single frontal radiograph of the chest was obtained. Comparison: Comparison is made to chest radiograph 08/12/2022 FINDINGS: No lines and tubes are seen. Cardiomegaly is noted. The aortic arch is calcified. The lungs are clear . Density in the right pleural surface is nonspecific and may represent overlying soft tissue, extrap leural fat, or loculated effusion. IMPRESSION: No evidence of pneumonia. Nonspecific density in the right lateral pleural surface which may possibly represent a loculated effusion. ACT 112: Negative or not required by law. Electronically signed by: Doyle Mckeon M.D. 07/15/2023 9:39 AM
--- NOTE | 2023-07-15 12:26 | Hospitalist Progress Note ---
Date of Service July 15, 2023 Assessment & Plan (1) Bleeding gums: Plan: No current bleeding at the time of my examination. Lora remains on hold. Serial lab (2) GERD (gastroesophageal reflux disease): Plan: Stable. Continue PPI therapy (3) Atrial fibrillation: Plan: Stable. 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 No intervention necessary at this time (5) Elevated troponin: Plan: Probably due to to demand ischemia related to transient hypotension. No evidence of acute coronary syndrome (6) Hypotension: Plan: Resolved with IV fluids. Coreg has been restarted. IV rate has been tapered down (7) COPD (chronic obstructive pulmonary disease): Plan: Stable. Continue current medical (8) Aspiration pneumonia of both lungs: Plan: No sign of aspiration pneumonia on chest x-ray or clinical exam (9) Anticoagulant long-term use: Plan: Lora is temporarily on hold Plan Hopeful discharge to home tomorrow, July 16 Admission and Anticipated Discharge Date Admission Date: July 15, 2023 Subjective Alert and oriented. No distress. No evidence of oral bleeding at this time. Blood pressure is now stable. IV rate has been tapered down. Coreg has been restarted. It appears she simply needs an observation bed and probably will go home tomorrow, July 16, barring any unforeseen developments. No clinical evidence of aspiration pneumonia or pneumonitis Review of Systems Review of Systems: Constitutional-no fever or chills ENT-no blurred vision, no double vision, no epistaxis, no sore throat Respiratory-no cough, no wheezing, no shortness of breath Cardiac-no palpitations, no chest pain, no syncope GI-no nausea, vomiting, diarrhea, melena, hematochezia -no urinary retention, no urinary incontinence, no dysuria, no hematuria Musculoskeletal-no joint pain, no muscle tenderness Skin-no bruising, no rashes, no pruritus Neuro-no isolated weakness, no paresthesia, no weakness Psych-no depression, no anxiety Physical Exam Physical Exam: General-alert and oriented x3, no fevers, no chills HEENT-head atraumatic and normocephalic, pupils equal and reactive to light, extraocular muscles intact. No gingival bleeding on examination Neck-no lymphadenopathy or thyromegaly, trachea midline Chest-clear to auscultation percussion. No rales wheezing or rhonchi Cardiac-regular rate and rhythm, normal S1 and S2 Abdomen-normal bowel sounds, nontender, no hepatosplenomegaly Extremities-no cyanosis, clubbing, or edema Neuro-cranial nerves II through XII intact, motor and sensory function within normal limits, strength symmetrical , no focal deficits Psych-normal affect, normal mood Results & Data Results & Data Vital Signs (Past 12 Hours) Vital Signs Temp Pulse Pulse Resp BP BP Pulse Ox 07/15/23 11:42 63 20 112/52 L 93 07/15/23 10:54 62 18 93 07/15/23 10:00 70 20 96/46 L 92 07/15/23 08:24 07/15/23 08:05 36.6 C 74 22 110/55 L 96 07/15/23 07:45 64 20 109/51 L 92 07/15/23 07:09 62 07/15/23 06:30 65 20 92 07/15/23 06:30 103/45 L 07/15/23 06:23 78 23 88 L 07/15/23 06:10 89 17 94 07/15/23 06:01 113/54 L 07/15/23 06:01 74 15 94 07/15/23 06:00 76 24 92 07/15/23 05:50 74 15 91 07/15/23 05:40 72 15 94 07/15/23 05:30 72 15 95 07/15/23 05:30 96/50 L 07/15/23 05:20 71 18 90 07/15/23 05:12 64 17 90 07/15/23 05:12 70/35 L 07/15/23 05:10 63 19 90 07/15/23 05:08 59/27 L 07/15/23 05:08 59 L 26 H 90 07/15/23 05:04 59 L 23 91 07/15/23 05:04 63/28 L 07/15/23 05:02 65/28 L 07/15/23 05:02 60 23 93 07/15/23 05:01 65 14 80 L 07/15/23 05:01 63/27 L 07/15/23 05:00 61 23 90 07/15/23 04:50 62 25 H 89 L 07/15/23 04:40 66 23 89 L 07/15/23 04:30 65 15 90 07/15/23 04:30 92/44 L 07/15/23 04:20 58 L 15 90 07/15/23 04:10 61 15 92 07/15/23 04:01 80/33 L 07/15/23 04:01 64 16 94 07/15/23 04:00 64 13 94 07/15/23 03:50 65 13 92 07/15/23 03:40 66 20 92 07/15/23 03:31 70 18 95 07/15/23 03:31 100/47 L 07/15/23 03:30 68 16 70 L 07/15/23 03:20 66 20 93 07/15/23 03:10 74 16 94 07/15/23 03:00 66 18 91 07/15/23 03:00 115/52 L 07/15/23 02:50 66 20 90 07/15/23 02:40 64 17 91 07/15/23 02:30 63 19 92 07/15/23 02:30 91/48 L 07/15/23 02:20 66 16 92 07/15/23 02:10 65 18 91 07/15/23 02:00 64 21 07/15/23 02:00 90/48 L 07/15/23 06:00 65 18 113/54 L 93 07/15/23 04:30 65 07/15/23 03:30 67 18 100/47 L 91 07/15/23 01:00 64 16 88/44 L 93 07/15/23 00:55 67 18 90 07/15/23 00:36 71 O2 Del Method 07/15/23 11:42 Room Air 07/15/23 10:54 Room Air 07/15/23 10:00 Room Air 07/15/23 08:24 Room Air 07/15/23 08:05 Room Air 07/15/23 07:45 Room Air 07/15/23 07:09 07/15/23 06:30 07/15/23 06:30 07/15/23 06:23 07/15/23 06:10 07/15/23 06:01 07/15/23 06:01 07/15/23 06:00 07/15/23 05:50 07/15/23 05:40 07/15/23 05:30 07/15/23 05:30 07/15/23 05:20 07/15/23 05:12 07/15/23 05:12 07/15/23 05:10 07/15/23 05:08 07/15/23 05:08 07/15/23 05:04 07/15/23 05:04 07/15/23 05:02 07/15/23 05:02 07/15/23 05:01 07/15/23 05:01 07/15/23 05:00 07/15/23 04:50 07/15/23 04:40 07/15/23 04:30 07/15/23 04:30 07/15/23 04:20 07/15/23 04:10 07/15/23 04:01 07/15/23 04:01 07/15/23 04:00 07/15/23 03:50 07/15/23 03:40 07/15/23 03:31 07/15/23 03:31 07/15/23 03:30 07/15/23 03:20 07/15/23 03:10 07/15/23 03:00 07/15/23 03:00 07/15/23 02:50 07/15/23 02:40 07/15/23 02:30 07/15/23 02:30 07/15/23 02:20 07/15/23 02:10 07/15/23 02:00 07/15/23 02:00 07/15/23 06:00 Room Air 07/15/23 04:30 07/15/23 03:30 Room Air 07/15/23 01:00 Room Air 07/15/23 00:55 Room Air 07/15/23 00:36 Laboratory Results 07/15/23 00:35 07/15/23 00:35 PG Care Time/CCT Total # of Minutes Spent Total Time Spent with Patient: Total time spent is greater than 50% in coordination of care (as documented) at patient's floor/unit and/or counseling patient: Coding Level of Care Code 92996 SUB INP/OBS CARE 3/50MIN Diagnoses Bleeding gums K06.8 GERD (gastroesophageal reflux disease) K21.9 Atrial fibrillation I48.91 Status post transcatheter aortic valve replacement (TAVR) using bioprosthesis Z95.3 Elevated troponin R79.89 Hypotension I95.9 COPD (chronic obstructive pulmonary disease) J44.9 Aspiration pneumonia of both lungs J69.0 Anticoagulant long-term use Z79.01
[2023-07-15] MEDS: carvediloL 6.25 MG TAB PO SCH (17:30)
[2023-07-16] MEDS: PIPERACILLIN/TAZOBACTAM 4.5 GM in DEXTROSE 5% MINI-B 100 ML IV SCH ×2 (03:26→09:10)
[2023-07-16] MEDS: ALBUT/IPRATROP 3MG/0.5MG NEB 3 ML VIAL NEB SCH ×3 (07:22→15:36)
[2023-07-16] MEDS: carvediloL 6.25 MG TAB PO SCH (09:00)
[2023-07-16] MEDS: guaiFENesin SUGAR FREE 200 MG/10 ML UDC PO SCH ×2 (09:01→13:24)
--- NOTE | 2023-07-16 12:08 | Discharge Summary ---
Date of Service July 16, 2023 Admission HPI Per Admitting Provider The patient is an 78-year-old female with a past medical history including GERD, atrial fibrillation, status post TAVR, hypertension, COPD, hyperlipidemia, carotid artery disease, upper GI bleed, hypothyroidism and long-term anticoagulant use. Patient had surgery on 07/05 for an oral lesion, that the son reports was infected and was on an antibiotic for 5 days. She resumed her Eliquis on 07/07. When seen by her oral surgeon for follow-up 2 days ago, she did not have any bleeding at that time. She began to have bleeding issues shortly after that visit, spitting up blood from her mouth, which her son reports is due to her using her tongue to play with the sutures. She denies any significant chest pain or shortness of breath, however, she has not been very physically active during this interval. Principal Diagnosis Gingival bleeding after dental procedure which occurred on July 05, suspected urinary tract infection, transient hypotension Discharge Exam General-alert and oriented x3, no fevers, no chills HEENT-head atraumatic and normocephalic, pupils equal and reactive to light, extraocular muscles intact. No gingival bleeding evident at this time Neck-no lymphadenopathy or thyromegaly, trachea midline Chest-clear to auscultation percussion. No rales wheezing or rhonchi Cardiac-regular rate and rhythm, normal S1 and S2 Abdomen-normal bowel sounds, nontender, no hepatosplenomegaly Extremities-no cyanosis, clubbing, or edema Neuro-cranial nerves II through XII intact, motor and sensory function within normal limits, strength symmetrical , no focal deficits Psych-normal affect, normal mood Discharge Data Allergies Allergy/AdvReac Type Severity Reaction Status Date / Time No Known Allergies Allergy Verified 05/24/23 13:33 Consultations 07/15/23 03:22 ED Decision to Admit Stat Hospital Course (1) Bleeding gums: No current bleeding at this time. Sons were instructed to keep her off the Eliquis for at least 1 more week. Eliquis remains on hold. Serial lab (2) GERD (gastroesophageal reflux disease): Stable. Continue PPI therapy (3) Atrial fibrillation: Stable. Continue current medical management although Eliquis is on hold (4) Status post transcatheter aortic valve replacement (TAVR) using bioprosthesis: Stable. No intervention necessary at this time (5) Elevated troponin: Probably due to to demand ischemia related to transient hypotension. No evidence of acute coronary syndrome (6) Hypotension: Resolved with IV fluids. Coreg has been restarted. IV rate has been tapered down (7) COPD (chronic obstructive pulmonary disease): Stable. Continue current medical (8) Aspiration pneumonia of both lungs: No sign of aspiration pneumonia on chest x-ray or clinical exam. This son was under the impression she had pneumonia but there is no clinical evidence of pneumonia nor chest x-ray evidence of pneumonia (9) Anticoagulant long-term use: Eliquis is temporarily on hold Plan Home today, July 16, on an oral antibiotic. Eliquis will remain on hold for 1 more week. The patient's sons are aware Total Time Total Time Spent Total Time Spent (In Minutes): 45 minutes Discharge Plan Discharge Items Patient Disposition: Home - Self-Care Reason For Visit: BLEEDING GUMS, COPD EX, ASPIRATION PNEUMONIA Discharge Diagnosis: Bleeding gingiva status post dental procedure, long-term use of systemic anticoagulant, suspected urinary tract infection, transient hypotension Activity: Resume your previous activity Non-emergency contact: Primary Care Provider Call non-emergency contact if: you have any medication questions Follow-up/Referrals: Jesu Tripathi DO [Primary Care Provider] - Diet: Regular and Heart Healthy Addtl Attending Provider Instructions: Remain off Eliquis for 1 more week. Take oral antibiotic for 3 more days Pending Studies at Discharge: No Stand-Alone Forms: My [facility] Oversi, Smoking Cessation Medications and DC Order Prescriptions: New amoxicillin-pot clavulanate 500-125 mg tablet 1 tab PO BID Qty: 6 0RF Continued albuterol sulfate 90 mcg/actuation HFA aerosol inhaler 1 puff inhalation QID PRN (Reason: shortness of breath or wheezing) Qty: 18 0RF furosemide 20 mg tablet 20 mg PO QAM Qty: 30 11RF lisinopril 20 mg tablet 20 mg PO QAM Qty: 30 11RF pantoprazole 40 mg tablet,delayed release (DR/EC) 40 mg PO BID Qty: 180 3RF famotidine 20 mg tablet See Rx Instructions .ROUTE .COMPLEX Qty: 180 1RF Dose Instruction: TAKE 1 TABLET BY MOUTH TWICE A DAY Rx Instructions: TAKE 1 TABLET BY MOUTH TWICE A DAY levothyroxine 50 mcg tablet 50 mcg PO QAM Qty: 90 1RF rosuvastatin 10 mg tablet 10 mg PO HS Qty: 90 3RF Rx Instructions: TAKE 1 TABLET BY MOUTH EVERY DAY carvedilol 6.25 mg tablet See Rx Instructions .ROUTE .COMPLEX Qty: 180 1RF Dose Instruction: TAKE 1 TABLET BY MOUTH TWICE A DAY Rx Instructions: TAKE 1 TABLET BY MOUTH TWICE A DAY ferrous sulfate 325 mg (65 mg iron) tablet 325 mg PO BID PreserVision AREDS-2 250-90-40-1 mg capsule 1 tab PO BID multivitamin tablet 1 tab PO HS potassium chloride 10 mEq tablet extended release 10 meq PO QAM calcium carbonate-vitamin D3 [Calcium 500 + D] 500 mg-10 mcg (400 unit) Tablet 1 tab PO QAM Discontinued Eliquis 5 mg tablet 5 mg PO BID Qty: 90 3RF Discharge Orders: Discharge Order (Routine); Ordered 07/16/23 Ordered By: Carlos Eduardo Sousa Admission Data Admit Date/Time: 07/15/23 03:21 Attending Provider: Carlos Eduardo Sousa Admit Provider: Rosales Marino Primary Care Provider: Jesu Tripathi Other Providers: Rosales Marino Coding Level of Care Code 48337 INP/OBS DISCH >30 MIN Diagnoses Bleeding gums K06.8 GERD (gastroesophageal reflux disease) K21.9 Atrial fibrillation I48.91 Status post transcatheter aortic valve replacement (TAVR) using bioprosthesis Z95.3 Elevated troponin R79.89 Hypotension I95.9 COPD (chronic obstructive pulmonary disease) J44.9 Aspiration pneumonia of both lungs J69.0 Anticoagulant long-term use Z79.01
--- NOTE | 2023-07-17 06:40 | Electrocardiogram Report ---
Test Reason : Blood Pressure : / mmHG Vent. Rate : 073 BPM Atrial Rate : 073 BPM P-R Int : 192 ms QRS Dur : 104 ms QT Int : 404 ms P-R-T Axes : 096 -45 081 degrees QTc Int : 445 ms Normal sinus rhythm Left axis deviation Incomplete right bundle branch block Minimal voltage criteria for LVH, may be normal variant ( [place] product ) Anteroseptal infarct (cited on or before 11-AUG-2022) Abnormal ECG When compared with ECG of 11-AUG-2022 14:44, Incomplete right bundle branch block is now Present Confirmed by Louis Grimaldo ([id number]) on 07/17/2023 6:40:24 AM Referred By: Jesu Tripathi Confirmed By:Louis Grimaldo
== END 2023-07-16 17:01 | disposition home or self-care (01) | DRG 158 ==
LOC: ED 23:47 → EDINP 07-15 03:21 → INTOOBSV 07-15 03:21 → SUATTDRO 07-15 03:21 → 2N 07-15 17:44